=== PATIENT | male | born 1985 | race Caucasian/White ===

== ENCOUNTER 2023-04-10 13:38 | Outpatient (CLI) | payer BC, SELFPAY ==
--- NOTE | 2023-04-10 14:00 | CRLHL7_ITS ---
For Patients: As a result of the Century Cures Act, medical imaging exams and procedure reports are released immediately into your electronic medical record. You may view this report before your referring provider. If you have questions, please contact your health care provider. INDICATION: Talus fracture. COMPARISON: None. TECHNIQUE: Noncontrast CT scan of the left ankle. FINDINGS: Swelling and increased density within the subcutaneous tissues of the ankle are likely secondary to edema and/or hemorrhage. There is an acute fracture of the medial aspect of the talus body. The fracture fragment measures approximately 20 mm AP by 12 mm craniocaudad by 4 mm in thickness and is essentially nondisplaced. There is intra-articular extension of the fracture into the medial ankle joint with is approximately 2 mm of subchondral bone step-off best seen on coronal re-formatted images. No other fracture is identified. The ankle mortise appears symmetric and intact. The subtalar, talonavicular and calcaneocuboid joints are unremarkable. There is a benign bone island within the calcaneus. IMPRESSION: Nondisplaced fracture of the medial aspect of the talus body with intra-articular extension and approximately 2 mm of subchondral bone step-off. Please note that all CT scans at this facility use dose modulation, iterative reconstruction, and/or weight-based dosing when appropriate to reduce radiation dose to as low as reasonably achievable. Dictated by Alden Rouse MD @ 04/11/2023 3:03:44 PM (Electronically Signed)
== END 2023-04-10 13:39 | disposition home or self-care (01) ==
LOC: CT 13:42
PROVIDERS: PCP Physician Assistant; Visit Provider Orthopaedic Surgery
DX: M25.572 Pain in left ankle and joints of left foot (principal); S92.102A Unspecified fracture of left talus, initial encounter for closed fracture
CPT/HCPCS: 73700

== ENCOUNTER 2024-01-27 15:18 | Outpatient (CLI) | payer BC, SELFPAY ==
[2024-01-30 08:16] LABS: H pylori Ag Stool* Negative (Negative)
[2024-01-30 08:39] LABS: C.Difficile Negative (Negative); CDIFFEPI 027 PRESUMPTIVE NEGATIVE (Negative)
[2024-02-03 02:39] LABS: Cryptosporidium by PCR Inhibited; Cyclospora cayetanensis by PCR Not Detected; Dientamoeba fragilis by PCR Not Detected; Entamoeba histolytica by PCR Inhibited; Giardia by PCR Inhibited
[2024-02-03 13:24] LABS: Ova and Parasite, Fecal Negative (Negative)
== END 2024-01-27 15:19 | disposition home or self-care (01) ==
PROVIDERS: PCP Nurse Practitioner Family; Visit Provider Nurse Practitioner Family
DX: R10.9 Unspecified abdominal pain (principal); R19.7 Diarrhea, unspecified; R14.0 Abdominal distension (gaseous)
CPT/HCPCS: 80053; 84443; 85025; 86231; 86258; 86364; 87045; 87046; 87077; 87147; 87177; 87209; 87338; 87427; 87493; 87505

== ENCOUNTER 2024-12-03 08:12 | Outpatient (CLI) | payer BC, SELFPAY | END 2024-12-03 08:13 | disposition home or self-care (01) | PROVIDERS: PCP Nurse Practitioner Family; Visit Provider Nurse Practitioner Family | DX: Z00.00 Encounter for general adult medical examination without abnormal findings (principal); E78.5 Hyperlipidemia, unspecified; I10 Essential (primary) hypertension | CPT/HCPCS: 80053; 80061; 85025 ==

== ENCOUNTER 2025-03-12 10:43 | Outpatient (CLI) | payer BC, SELFPAY | END 2025-03-12 10:44 | disposition home or self-care (01) | PROVIDERS: PCP Nurse Practitioner Family; Visit Provider Nurse Practitioner Family | DX: R74.8 Abnormal levels of other serum enzymes (principal); R74.01 Elevation of levels of liver transaminase levels; E83.52 Hypercalcemia | CPT/HCPCS: 80076; 82310 ==